=== PATIENT | male | born 1995 | race Caucasian/White ===

== ENCOUNTER 2017-03-20 17:59 | Emergency (ER) | payer OTHER ==
--- NOTE | ~2017-03-20 | CR226 ---
[facility]. [facility] A Service of [facility] & [facility] RADIOLOGY TEXT RESULTS PATIENT: FLOR RANGEL LOCATION: SED : 94 UNIT #: [id number] AGE: [address]: Patrick St MD SEX: M ORDER DR: [id number] [place] [id number] E MR#: [id number] Acc #: [id number] NAME: FLOR RANGEL : 1995 SEX: M STUDY DATE/TIME: 03/20/2017 17:21 UNIT: SED ROOM: STUDY DESCRIPTION: CR Shoulder 1 View Lt Attending Physician: Patrick St M.D. Ordering Physician: Patrick St M.D. Primary Care Physician: [place] M.D. MEDICAL IMAGING REPORT This report is preliminary unless electronic signature is present. EXAM Left shoulder 03/20/2017 INDICATIONS Shoulder pain. Post reduction imaging. TECHNIQUE Frontal shoulder performed. Comparison 04/24/2016 FINDINGS No prereduction shoulder image was obtained. The comparison is from 04/24/2016. The post reduction image demonstrates overlap of the bony glenoid and humeral head without definitive dislocation on the single frontal view. Correlate with physical exam findings. No acute fracture. IMPRESSION 1. Limited single frontal view without comparisons demonstrates no distinct evidence of dislocation but this should be correlated clinically. No acute fracture. Dictated by... Olvin Fernandes M.D. THIS IS AN ELECTRONICALLY VERIFIED REPORT Olvin Fernandes M.D. at 03/20/2017 7:54 PM JEREMÍAS/oscar TD: 03/20/2017 18:50 JOB #: [id number] MEDICAL IMAGING REPORT Page 1 of 1
[~2017-03-20 17:59] MED LIST: ACETAMINOPHEN PO; AMOXICILLIN PO; BACITRACIN30 GM TOP; DIFLUCAN200 MG PO; FLEXERIL10 MG PO; HYDROCODON-ACE1 EAC7 PO; IBUPROFEN600 MG PO; IBUPROFEN800 MG PO; LORTAB 5/500 TA1 TA1 PO; NO MEDICATIONS; PREDNISONE PO; TYLENOL #3 PO; VICODIN 5/1 TAB 5/50 PO; VOLTAREN75 MG PO
== END 2017-03-20 18:37 | disposition home or self-care (01) ==
LOC: SED 17:59
DX: S43.005A Unspecified dislocation of left shoulder joint, initial encounter (principal); X50.1XXA Overexertion from prolonged static or awkward postures, initial encounter; Y92.830 Public park as the place of occurrence of the external cause
CPT/HCPCS: 23650; 73020; 99152; 99153; 99283; J2060; J3010

== ENCOUNTER 2017-08-21 03:53 | Emergency (ER) | payer OTHER ==
[~2017-08-21] VITALS: Ht 165.1 cm; Wt 54.4 kg
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
== END 2017-08-21 05:44 | disposition left against medical advice (07) ==
LOC: SED 03:53
DX: S49.91XA Unspecified injury of right shoulder and upper arm, initial encounter (principal); F17.200 Nicotine dependence, unspecified, uncomplicated; W19.XXXA Unspecified fall, initial encounter; Y92.009 Unspecified place in unspecified non-institutional (private) residence as the place of occurrence of the external cause
CPT/HCPCS: 71111; 73030; 99283